=== PATIENT | female | born 1970 | race Caucasian/White ===

== ENCOUNTER → 2017-03-25 | Outpatient (CLI) | payer OTHER ==
--- NOTE | 2017-03-25 09:05 | XR ---
EXAMINATION TYPE: XR cervical spine w flex/ext DATE OF EXAM: 03/25/2017 COMPARISON: NONE HISTORY: Chronic neck pain TECHNIQUE: Four views are submitted. FINDINGS: The odontoid is intact. There are no compression deformities. The prevertebral soft tissue structur es are within normal limits. Mild hypertrophic changes noted anteriorly. There is minimal anterolist hesis of C3 on 4, C4 on 5, and C5-C6 on flexion views. Mild degenerative disc disease C4-5 and C5-C6. IMPRESSION: 1. Mild degenerative disc disease with minimal anterolisthesis as discussed above seen on flexion vie ws only. May be on the basis of ligamentous laxity. Correlate clinically.
--- NOTE | 2017-03-25 09:25 | CT ---
EXAMINATION TYPE: CT cervical spine wo con DATE OF EXAM: 03/25/2017 COMPARISON: Cervical spine x-ray March 25, 2017. Cervical spine CT February 02, 2009. HISTORY: Cervicalgia per order. Neck pain for [address] DLP: 702.2 mGycm. Automated Exposure Control for Dose Reduction was Utilized. TECHNIQUE: CT scan of the cervical spine is obtained without contrast, axial images are obtained, sa gittal and coronal reformatted images are also reviewed. FINDINGS: Cervical spine is visualized in its entirety from C1 through upper thoracic levels, demonst rates straightened alignment without evidence of acute fracture or dislocation. Prevertebral soft ti ssue appears within normal limits. The C1-C2 articulation is within normal limits on the coronal jeevan ges. Vertebral body heights and disc space heights are maintained. Spinal canal is preserved. Review of axial images shows no significant spinal canal stenosis or neural foraminal narrowing at an y cervical level. Thyroid gland is felt within normal limits. Visualized lung apices are clear. IMPRESSION: Unremarkable study. No significant change from prior.
== END | disposition home or self-care (01) ==
LOC: RADCTMAIN 08:12
PROVIDERS: ATTEND Internal Medicine
DX: M50.321 Other cervical disc degeneration at C4-C5 level (principal); M43.12 Spondylolisthesis, cervical region; Z88.6 Allergy status to analgesic agent; Z88.8 Allergy status to other drugs, medicaments and biological substances
CPT/HCPCS: 72052; 72125